=== PATIENT | female | born 1950 | race Caucasian/White ===

== ENCOUNTER 2020-06-16 14:47 | Inpatient (IN) | payer OTHER ==
[~2020-06-16] VITALS: Ht 154.9 cm; Wt 70.8 kg
[2020-06-16] MEDS ORDERED: AMLODIPINE-OLM1 EAC3 (15:22)
[2020-06-16] MEDS ORDERED: ATORVASTATIN CA20 MG (15:23)
[2020-06-16] MEDS ORDERED: ASPIR 8181 MG (15:23)
[2020-06-16] MEDS ORDERED: TIROSINT100 MCG (15:23)
[2020-06-16] MEDS ORDERED: JANUMET XR 50-1 EAC1 (15:24)
[2020-06-26] MEDS ORDERED: LEVOTHYROXINE125 MCG PO (12:14)
[2020-06-26] MEDS ORDERED: JANUMET XR 50-1 EAC1 PO (12:14)
[2020-06-26] MEDS ORDERED: PYRIDOXINE HCL100 MG PO (12:14)
[2020-06-26] MEDS ORDERED: ABANEU-SL TABL1 EACH SL (12:14)
[2020-06-26] MEDS ORDERED: INTEGRA F CAPS1 EACH PO (12:14)
[2020-06-26] MEDS ORDERED: AMOX-CLAV 875-1 EACH PO (12:14)
[2020-06-26] MEDS ORDERED: LOVENOX40 MG/0.4 SUBCUTANEO (12:14)
[2020-06-26] MEDS ORDERED: PROTEINEX-18 LI30 ML PO (12:14)
[2020-06-26] MEDS ORDERED: PEPCID AC20 MG PO (12:14)
[2020-06-26] MEDS ORDERED: AMLODIPINE-OLM1 EAC3 PO (12:14)
[2020-06-26] MEDS ORDERED: ATORVASTATIN CA20 MG PO (12:14)
[2020-06-26] MEDS ORDERED: Lantus 1000 UNITS/10 SUBCUTANEO (12:30)
[2020-06-26] MEDS ORDERED: PERCOCET 5-3251 EACH PO (12:30)
== END 2020-06-26 22:29 | disposition home or self-care (01) | DRG 740 ==
LOC: ER 14:47 → SURH 06-17 17:17
PROVIDERS: Obstetrics & Gynecology Gynecologic Oncology; ADMIT Internal Medicine Geriatric Medicine; ATTEND Internal Medicine Geriatric Medicine
PROC: BW21Y0Z Computerized Tomography (CT Scan) of Abdomen and Pelvis using Other Contrast, Unenhanced and Enhanced (ICD-10-PCS; 2020-06-17)
PROC: B24BZZZ Ultrasonography of Heart with Aorta (ICD-10-PCS; 2020-06-17)
PROC: BB24ZZZ Computerized Tomography (CT Scan) of Bilateral Lungs (ICD-10-PCS; 2020-06-17)
PROC: BU4CZZZ Ultrasonography of Uterus and Ovaries (ICD-10-PCS; 2020-06-17)
PROC: 30233N1 Transfusion of Nonautologous Red Blood Cells into Peripheral Vein, Percutaneous Approach (ICD-10-PCS; 2020-06-18)
PROC: 0W9G30Z Drainage of Peritoneal Cavity with Drainage Device, Percutaneous Approach (ICD-10-PCS; 2020-06-19)
PROC: 0JBC3ZX Excision of Pelvic Region Subcutaneous Tissue and Fascia, Percutaneous Approach, Diagnostic (ICD-10-PCS; 2020-06-19)
PROC: 0UT70ZZ Resection of Bilateral Fallopian Tubes, Open Approach (ICD-10-PCS; 2020-06-23)
PROC: 0UT20ZZ Resection of Bilateral Ovaries, Open Approach (ICD-10-PCS; 2020-06-23)
PROC: 0DTU0ZZ Resection of Omentum, Open Approach (ICD-10-PCS; 2020-06-23)
PROC: 0UT90ZZ Resection of Uterus, Open Approach (ICD-10-PCS; principal; 2020-06-23 07:00)
DX: C76.3 Malignant neoplasm of pelvis (principal); N17.9 Acute kidney failure, unspecified; R18.8 Other ascites; C78.5 Secondary malignant neoplasm of large intestine and rectum; I08.1 Rheumatic disorders of both mitral and tricuspid valves; K66.8 Other specified disorders of peritoneum; K66.0 Peritoneal adhesions (postprocedural) (postinfection); R22.2 Localized swelling, mass and lump, trunk; D64.9 Anemia, unspecified; E87.5 Hyperkalemia; E03.8 Other specified hypothyroidism; E11.22 Type 2 diabetes mellitus with diabetic chronic kidney disease; E11.65 Type 2 diabetes mellitus with hyperglycemia; D25.1 Intramural leiomyoma of uterus; N72 Inflammatory disease of cervix uteri; N83.12 Corpus luteum cyst of left ovary; I67.1 Cerebral aneurysm, nonruptured; I12.9 Hypertensive chronic kidney disease with stage 1 through stage 4 chronic kidney disease, or unspecified chronic kidney disease; N18.3 Chronic kidney disease, stage 3 (moderate); Z79.4 Long term (current) use of insulin; Z03.818 Encounter for observation for suspected exposure to other biological agents ruled out

== ENCOUNTER 2020-10-06 08:00 | Outpatient (CLI) | payer OTHER ==
[~2020-10-06 08:00] MED LIST: ABANEU-SL TABL1 EACH SL; AMLODIPINE-OLM1 EAC3; AMLODIPINE-OLM1 EAC3 PO; AMOX-CLAV 875-1 EACH PO; ASPIR 8181 MG; ATORVASTATIN CA20 MG; ATORVASTATIN CA20 MG PO; INTEGRA F CAPS1 EACH PO; JANUMET XR 50-1 EAC1; JANUMET XR 50-1 EAC1 PO; LEVOTHYROXINE125 MCG PO; LOVENOX40 MG/0.4 SUBCUTANEO; Lantus 1000 UNITS/10 SUBCUTANEO; PEPCID AC20 MG PO; PERCOCET 5-3251 EACH PO; PROTEINEX-18 LI30 ML PO; PYRIDOXINE HCL100 MG PO; TIROSINT100 MCG
[2020-11-07] MEDS ORDERED: VITAMIN B6100 MG/2.5 PO (11:12)
[2020-11-07] MEDS ORDERED: NUERIN (11:13)
[2020-11-07] MEDS ORDERED: LEVOXYL112 MCG PO (11:14)
[2020-11-07] MEDS ORDERED: INTEGRA PO (11:14)
[2020-11-07] MEDS ORDERED: LANTUS (11:15)
== END 2020-10-06 15:00 | disposition home or self-care (01) ==
LOC: LAB 08:00 → ADM 10-11 11:30 → CIR.AMB 10-12 09:00 → EDSTATUS 10-12 11:30 → CIR.AMB 10-12 11:30
PROVIDERS: ATTEND Specialist
DX: Z20.828 Contact with and (suspected) exposure to other viral communicable diseases (principal)

== ENCOUNTER 2020-11-14 06:55 | Day surgery (SDC) | payer OTHER ==
[~2020-11-14 06:55] MED LIST changes: +INTEGRA PO; +LANTUS; +LEVOXYL112 MCG PO; +NUERIN; +VITAMIN B6100 MG/2.5 PO
== END 2020-11-14 13:45 | disposition home or self-care (01) ==
LOC: CIR.AMB 06:55
PROVIDERS: ATTEND Specialist
DX: C56.1 Malignant neoplasm of right ovary (principal); C56.2 Malignant neoplasm of left ovary; Z20.828 Contact with and (suspected) exposure to other viral communicable diseases
CPT/HCPCS: 36561; C1751

== ENCOUNTER 2020-12-06 23:50 | Inpatient (IN) | payer OTHER ==
[~2020-12-06] VITALS: Ht 154.9 cm; Wt 61.2 kg
[2020-12-08] MEDS ORDERED: INTEGRA F CAPS1 EAC1 (10:26)
[2020-12-08] MEDS ORDERED: AMLODIPINE-BEN1 EAC1 (10:27)
[2020-12-08] MEDS ORDERED: ACETAZOLAMIDE250 MG (10:27)
[2020-12-08] MEDS ORDERED: ABANEU-SL TABL1 EACH (10:28)
[2020-12-11] MEDS ORDERED: INTEGRA F CAPS1 EAC1 (11:18)
[2020-12-13] MEDS ORDERED: JANUMET XR 50-1 EAC1 PO (13:27)
[2020-12-13] MEDS ORDERED: FAMOTIDINE20 MG PO (13:27)
[2020-12-13] MEDS ORDERED: HUMALOG100 UNIT/1 SUBCUTANEO (13:27)
[2020-12-13] MEDS ORDERED: ABANEU-SL TABL1 EACH SL (13:27)
[2020-12-13] MEDS ORDERED: LEVOXYL112 MCG PO (13:27)
[2020-12-13] MEDS ORDERED: ACETAZOLAMIDE250 MG PO (13:27)
[2020-12-13] MEDS ORDERED: PYRIDOXINE HCL100 MG PO (13:27)
[2020-12-13] MEDS ORDERED: ATORVASTATIN CA20 MG PO (13:27)
[2020-12-13] MEDS ORDERED: Lantus 1000 UNITS/10 SUBCUTANEO (13:27)
[2020-12-13] MEDS ORDERED: AMLODIPINE-BEN1 EAC1 PO (13:27)
[2020-12-13] MEDS ORDERED: INTEGRA F CAPS1 EACH PO (13:27)
== END 2020-12-13 14:17 | disposition home or self-care (01) | DRG 638 ==
LOC: ER 23:50 → MEDJ 12-07 14:41
PROVIDERS: ADMIT Internal Medicine Geriatric Medicine; ATTEND Internal Medicine Geriatric Medicine
PROC: 30233N1 Transfusion of Nonautologous Red Blood Cells into Peripheral Vein, Percutaneous Approach (ICD-10-PCS; principal; 2020-12-07)
PROC: B24BYZZ Ultrasonography of Heart with Aorta using Other Contrast (ICD-10-PCS; 2020-12-07)
DX: E11.10 Type 2 diabetes mellitus with ketoacidosis without coma (principal); C56.9 Malignant neoplasm of unspecified ovary; D63.0 Anemia in neoplastic disease; E11.65 Type 2 diabetes mellitus with hyperglycemia; I10 Essential (primary) hypertension; E87.5 Hyperkalemia; E03.9 Hypothyroidism, unspecified; Z20.822 Contact with and (suspected) exposure to COVID-19

== ENCOUNTER 2021-01-10 11:17 | Outpatient (CLI) | payer OTHER ==
[~2021-01-10 11:17] MED LIST changes: +ABANEU-SL TABL1 EACH; +ACETAZOLAMIDE250 MG; +ACETAZOLAMIDE250 MG PO; +AMLODIPINE-BEN1 EAC1; +AMLODIPINE-BEN1 EAC1 PO; +FAMOTIDINE20 MG PO; +HUMALOG100 UNIT/1 SUBCUTANEO; +INTEGRA F CAPS1 EAC1
== END 2021-01-10 11:30 | disposition home or self-care (01) ==
LOC: RAD 11:17
PROVIDERS: ATTEND Internal Medicine Hematology & Oncology
DX: T82.848A Pain due to vascular prosthetic devices, implants and grafts, initial encounter (principal); Y82.8 Other medical devices associated with adverse incidents

== ENCOUNTER 2021-02-20 10:21 | Inpatient (IN) | payer OTHER ==
[~2021-02-20] VITALS: Ht 154.9 cm; Wt 57.2 kg
--- NOTE | 2021-02-20 10:35 | NUR ---
PACIENTE ALERTA Y ORIENTADA. REFERIDA POR DR. HERRING, PARA TRANSFUSION DE ANNABELLE. HEMOGLOBINA EN 7.3 SE KIMBERLYN S/V. SE UBICA EN RADHA DE OBSERVACION PARA TRATAMIENTO Y EVALUACION MEDICA.
--- NOTE | 2021-02-20 12:20 | NUR ---
PACIENTE ALERTA Y ORIENTADA EN FEDE LEVAR ESFERAS. MRVin ENGLISH ORIENTA A PACIENTE SOBRE PROCEDIMIENTO Y TX, REFIERE ENTENDER. EXTRAE MUESTRAS DE LABORATORIO CON MEDIDAS ASEPTICAS Y COLOCA IVF'S ANA ORDEN MEDICA. KIMBERLYN TUBOS PILOTOS PARA 2 UNIDADES DE PRBC'S FRACCIONADAS.
[2021-02-21] MEDS ORDERED: OMEPRAZOLE40 MG (08:23)
[2021-02-21] MEDS ORDERED: INTEGRA F CAPS1 EAC1 (08:23)
[2021-02-26] MEDS ORDERED: JANUMET XR 50-1 EAC1 PO (14:32)
[2021-02-26] MEDS ORDERED: ABANEU-SL TABL1 EACH SL (14:32)
[2021-02-26] MEDS ORDERED: HUMALOG100 UNIT/1 SUBCUTANEO ×2 (14:32)
[2021-02-26] MEDS ORDERED: ACETAZOLAMIDE250 MG PO (14:32)
[2021-02-26] MEDS ORDERED: FAMOTIDINE20 MG PO (14:32)
[2021-02-26] MEDS ORDERED: INTEGRA F CAPS1 EAC1 PO (14:32)
[2021-02-26] MEDS ORDERED: PYRIDOXINE HCL100 MG PO (14:32)
[2021-02-26] MEDS ORDERED: AMLODIPINE-BEN1 EAC1 PO (14:32)
[2021-02-26] MEDS ORDERED: LEVOXYL112 MCG PO (14:32)
[2021-02-26] MEDS ORDERED: SERTRALINE HCL50 MG PO (14:32)
== END 2021-02-26 14:54 | disposition critical access hospital, planned readmission (94) | DRG 812 ==
LOC: ER 10:21 → OB/GYN 15:19 → SURH 15:19 → SEC-K 15:19 → OB/GYN 23:16 → SURH 02-21 16:42
PROVIDERS: ADMIT Internal Medicine Geriatric Medicine; ATTEND Internal Medicine Geriatric Medicine
PROC: 30233N1 Transfusion of Nonautologous Red Blood Cells into Peripheral Vein, Percutaneous Approach (ICD-10-PCS; principal; 2021-02-21)
DX: D64.81 Anemia due to antineoplastic chemotherapy (principal); N39.0 Urinary tract infection, site not specified; B37.89 Other sites of candidiasis; C56.2 Malignant neoplasm of left ovary; C79.89 Secondary malignant neoplasm of other specified sites; R18.8 Other ascites; D63.0 Anemia in neoplastic disease; B96.1 Klebsiella pneumoniae [K. pneumoniae] as the cause of diseases classified elsewhere; Z60.4 Social exclusion and rejection; F43.21 Adjustment disorder with depressed mood; F43.20 Adjustment disorder, unspecified; F43.23 Adjustment disorder with mixed anxiety and depressed mood; E11.9 Type 2 diabetes mellitus without complications; E03.8 Other specified hypothyroidism; Z20.822 Contact with and (suspected) exposure to COVID-19; K29.60 Other gastritis without bleeding; I10 Essential (primary) hypertension; R14.0 Abdominal distension (gaseous); N28.9 Disorder of kidney and ureter, unspecified; E78.00 Pure hypercholesterolemia, unspecified; I67.1 Cerebral aneurysm, nonruptured

== ENCOUNTER 2021-06-12 10:15 | Outpatient (CLI) | payer OTHER ==
[~2021-06-12 10:15] MED LIST changes: +INTEGRA F CAPS1 EAC1 PO; +OMEPRAZOLE40 MG; +SERTRALINE HCL50 MG PO
== END 2021-06-12 10:22 | disposition home or self-care (01) ==
LOC: RX STUDY 10:15
PROVIDERS: ATTEND Internal Medicine Hematology & Oncology
DX: T82.9XXA Unspecified complication of cardiac and vascular prosthetic device, implant and graft, initial encounter (principal); E03.8 Other specified hypothyroidism; C56.2 Malignant neoplasm of left ovary; I10 Essential (primary) hypertension; E78.2 Mixed hyperlipidemia; C76.3 Malignant neoplasm of pelvis

== ENCOUNTER → 2021-06-21 15:53 | Outpatient (CLI) | payer OTHER | END | disposition home or self-care (01) | LOC: LAB 15:53 | PROVIDERS: ATTEND Internal Medicine Hematology & Oncology | DX: D50.8 Other iron deficiency anemias (principal) ==